=== PATIENT | male | born 1940 | race Caucasian/White ===

== ENCOUNTER 2017-06-30 12:20 | Outpatient (CLI) | payer MEDICARE, OTHER ==
[2017-06-30 14:50] LABS: Bilirubin Negative (Negative); Blood, Urine Negative (Negative); Glucose, Urine (Dipstick) Negative (Negative); Ketone, Urine Negative (Negative); Nitrite Negative (Negative); Protein, Urine (Dipstick) Negative (Neg-Trace)
[2017-06-30 14:57] LABS: Bacteria/HPF None Seen HPF (None Seen); Hyaline Casts/LPF 0-3 HYALINE CAST LPF (0-3 Hyaline); RBC/HPF 0-3 HPF (0-3); Squamous Epithelial None Seen HPF (0-3); WBC/HPF 0-3 HPF (0-3)
[2017-06-30 15:10] LABS: Anion Gap 8 mmol/L (10-20); BUN (Urea Nitrogen) 13 mg/dL (8.4-25.7); Calc. Creatinine Clearance 0 mL/min (70-130); Carbon Dioxide 32 mmol/L (23-31); Chloride 101 mmol/L (98-107); Estimated GFR-MDRD 78
== END 2017-06-30 12:21 | disposition home or self-care (01) ==
LOC: LABBT 12:20
PROVIDERS: ATTEND Orthopaedic Surgery
DX: Z01.818 Encounter for other preprocedural examination (principal); M17.0 Bilateral primary osteoarthritis of knee
CPT/HCPCS: 80048; 81001; 86850; 86900; 86901; 87081

== ENCOUNTER 2017-06-30 13:00 | Inpatient (IN) | payer MEDICARE, OTHER ==
[2017-06-30 12:48] VITALS: BMI 36.6
[2017-07-06] MEDS ORDERED: CEFAZOLIN/Water 2 GM/20 ML SYRINGE ONE (07:33)
[2017-07-06] MEDS ORDERED: Tranexamic Acid 1,000 MG/100 ML BAG ONE ×2 (07:33→13:08)
[2017-07-06] MEDS ORDERED: Fentanyl 100 MCG/2 ML VIAL ONE ×2 (07:51→10:12)
[2017-07-06] MEDS ORDERED: Midazolam HCl 2 mg/2 ml Vial ONE ×2 (07:51→08:12)
[2017-07-06 08:07] LABS: #Basophils 0.1 thou/uL (0.0-0.2); #Eosinphils 0.2 thou/uL (0.0-0.7); #Lymphocytes 2.4 thou/uL (1.20-3.40); #Monocytes 0.7 thou/uL (0.11-0.59); #Neutrophils 2.9 thou/uL (1.40-6.50); %Basophils 1.5 % (0.0-1.0); %Eosinophils 3.2 % (0.0-10.0); %Lymphocytes 37.8 % (21.0-51.0); %Monocytes 11.5 % (0.0-10.0); Hematocrit 46.1 % (42.0-52.0); Mean Platelet Volume 7.1 fL (7.4-10.4); Red Blood Cell (RBC) Count 4.65 mill/uL (4.70-6.10); White Blood Cell (WBC) Count 6.4 thou/uL (4.8-10.8)
[2017-07-06 08:13] LABS: Prothrombin Time 13.4 SEC (12.0-14.7)
[2017-07-06] MEDS ORDERED: Vancomycin HCl 1.5 GM in Sodium Chloride 0.9% 250 ML 300 ML IVPB ONE (08:15)
[2017-07-06] MEDS ORDERED: traMADol HCl 50 MG TAB PO PRN ×2 (08:39)
[2017-07-06] MEDS ORDERED: Ropivacaine 0.2% HCl/PF (40 MG/20 ML VIAL) ONE (08:39)
[2017-07-06] MEDS ORDERED: HYDROcodone/Acetaminophen 5/325 mg Tablet PO PRN ×2 (08:39)
[2017-07-06] MEDS ORDERED: Zolpidem Tartrate 5 MG TAB PO PRN ×2 (08:39→12:04)
[2017-07-06] MEDS ORDERED: Ropivacaine 0.5% HCl/PF (150 MG/30 ML VIAL) ONE (08:39)
[2017-07-06] MEDS ORDERED: Ropivacaine HCl/PF 250 ML in Premix Bag 1 BAG NERVE BLCK SCH (08:39)
[2017-07-06] MEDS ORDERED: Ondansetron HCl/PF 4 MG/2 ML Vial IVP PRN ×3 (08:39→12:23)
[2017-07-06] MEDS ORDERED: Promethazine HCl 25 MG/ML VIAL IM PRN ×3 (08:39→12:23)
[2017-07-06] MEDS ORDERED: Lidocaine 1% (PF) 30 ML VIAL ONE (08:40)
[2017-07-06] MEDS ORDERED: Bupivacaine/Epinephrine 0.25% 30 ML VIAL ONE (08:40)
[2017-07-06] MEDS ORDERED: methylPREDNISolone Acetate 40 mg/ml Vial ONE (08:40)
[2017-07-06] MEDS ORDERED: Fentanyl 100 MCG/2 ML VIAL IV PRN (08:44)
[2017-07-06] MEDS ORDERED: Bupivacaine PF 0.5% 30 ML VIAL ONE (10:23)
[2017-07-06] MEDS ORDERED: Ondansetron HCl/PF 4 MG/2 ML Vial ONE (10:52)
[2017-07-06] MEDS ORDERED: Propofol 200 MG/20 ML VIAL ONE (10:52)
[2017-07-06] MEDS ORDERED: Glycopyrrolate 0.2 MG/ML 5 ML SYRINGE ONE ×2 (10:52)
[2017-07-06] MEDS ORDERED: Dexamethasone 20 MG/5 ML VIAL ONE (10:52)
[2017-07-06] MEDS ORDERED: Labetalol HCl 100 MG/20 ML VIAL ONE (10:52)
[2017-07-06] MEDS ORDERED: diphenhydrAMINE 25 MG CAP PO PRN (12:04)
[2017-07-06] MEDS ORDERED: Acetaminophen 325 MG TAB PO PRN (12:04)
[2017-07-06] MEDS ORDERED: HYDROcodone/Acetaminophen 10/325 mg Tablet PO PRN (12:04)
[2017-07-06] MEDS ORDERED: Tranexamic Acid 1,000 MG in Sodium Chloride 0.9% 100 ML IVPB SCH (12:15)
--- NOTE | 2017-07-06 12:22 | OP ---
DATE OF PROCEDURE: 07/06/2017 PREOPERATIVE DIAGNOSIS: Bilateral knee osteoarthritis with the left being worse than the right. POSTOPERATIVE DIAGNOSIS: Bilateral knee osteoarthritis with the left being worse than the right. PROCEDURES PERFORMED: 1. Left total knee replacement using [employer] pinless navigation. 2. Right knee corticosteroid injection. SURGEON: Kevin Worley M.D. CIRCUIT DESIGN ENGINEER: Wilmer Bonilla PA-C. BLOOD LOSS: Minimal. COMPLICATIONS: None. ANESTHESIA: He did have general anesthetic. He also had blocks performed. IMPLANTS: The knee that was placed into the left knee was [employer] total knee system. The femur, s ize 5 cruciate retaining. Tibial baseplate size 5. We used a 5 x 13 mm CS X3 tibial bearing and an asymmetric 29 x 9 X3 patella. DISPOSITION: He did go to the recovery room in stable condition. INDICATIONS: A 77-year-old male who has been having problems of bilateral knees for a long time and at this time he has failed to get relief that he would like from nonoperative methods and at this ebenezer parikh wished to have his left knee replaced while at the same time injecting his right knee. DESCRIPTION OF PROCEDURE: After all appropriate consent forms were explained and signed, he was take n to the operating room and at this time was given general anesthetic. Once the level of anesthesia was appropriate, the right knee was cleaned with alcohol and 80 mg Depo-Medrol local was injected wit hout complication. We then turned our attention to the left leg. Tourniquet was placed on the left thigh and then the left lower extremity was prepped and draped in the standard surgical fashion. Onc e the level of anesthesia was appropriate, a well-padded tourniquet was placed on the left leg and th e leg was then prepped and draped in standard surgical fashion. The limb was exsanguinated and tourni quet taken up to 300 mmHg. Midline incision was made with a 10 blade down through the skin and subcut aneous tissue. Bovie electrocautery was used to coagulate any brisk venous bleeding. A new blade was used to make a medial parapatellar arthrotomy. Small subperiosteal release was performed medially and excess fat pad was removed. The knee was flexed up to gain access to the femur. The femur was naviga angelika and distal femoral resection was made. Epicondylar access was used to align our sizing jig and th is was pinned in place. We sized our femur to be a size 5, 4:1 cutting block was applied and pinned. Anterior and posterior chamfer cuts were then made. We navigated out our proximal tibia and made our proximal tibial resection. Spreaders were used to remove any posterior osteophytes off the back of th e femur as well as remaining meniscal tissue. A long alignment merary was then used to achieve correct r otation of our tibial baseplate and a size 5 was chosen. This was pinned in place. We trialed the ashley yethylene and a 5 x 13 mm CS X3 polyethylene gave us full extension and good stability throughout ran ge of motion. Two towel clips and a saw were used to cut our patella. Three lug nuts were drilled and 29 x 9 X3 patella was trialed which sat nicely in the trochlear groove. We then drilled our femur an d punched our tibia. All components were removed. The knee was thoroughly irrigated and dried. Cement was mixed into the cement gun on the back table. Components were then placed. The knee was held out in full extension until the cement had dried. All excess bone cement was removed. Multiple #2 Vicryl stitches as well as a Quill was used to close our extensor mechanism. 0 Quill followed by a running Monoderm was then used to close the skin. Surgicel glue was then used on the skin. Once this had drie d, soft tissue dressing was applied to the limb, tourniquet was let down, and the toes pinked up nice ly. The patient was then awakened and taken to the Recovery Room in stable condition. All counts wer e correct at the end of the case. The patient did receive preoperative IV antibiotics. The patient w as injected with Exparel for postoperative pain relief.
[2017-07-06] MEDS ORDERED: Promethazine HCl 25 MG/ML VIAL SLOW IVP PRN (12:23)
[2017-07-06] MEDS: CEFAZOLIN/Water 2 GM/20 ML SYRINGE SLOW IVP SCH ×2 (14:16→22:53)
[2017-07-06] MEDS: Ketorolac Tromethamine 30 MG/ML VIAL IVP SCH ×3 (14:16→22:54)
--- NOTE | 2017-07-06 14:52 | CON ---
DATE OF CONSULATION: 07/06/2017 REASON FOR ADMISSION: Bilateral knee pain, status post left total knee replacement and right knee co rticosteroid injection. REASON FOR CONSULT: Medical management. BRIEF HOSPITAL COURSE: This is a 77-year-old pleasant gentleman who has been having problems of bila teral knee for a long time. At this time, he has failed to get relief from nonoperative methods. Dr Tamika Brown spoke to the family and the patient had a total knee replacement of the left side because th e left side was hurting more than right. He also had a right knee corticosteroid injection at this p oint. He has been admitted for observation. Right now, the patient denies any chest pain, shortness of breath, nausea, vomiting, diarrhea or dysuria. He will be in the hospital for observation for po st-procedure observation. PAST MEDICAL HISTORY: Significant for obstructive sleep apnea and hypertension. MEDICATIONS: Include please see MAR includes propranolol and Benicar for blood pressure control, als o includes glucosamine, Ocuvite tablets, Viagra, lorazepam p.r.n. PAST SURGICAL HISTORY: Significant for umbilical hernia repair, bilateral knee multiple injections, colonoscopy, bilateral bone spore heel surgery. SOCIAL HISTORY: Does not smoke, occasional alcohol use, does not do any recreational drugs. ALLERGIES: CELEBREX. FAMILY HISTORY: Negative for diabetes and hypertension. REVIEW OF SYSTEMS: Significant for some discomfort in the left knee. Otherwise, no fever, no chills , no headache, no appetite, no hearing latencies, no cough. No chest pain, diarrhea, dysuria, or ashley yuria. No memory or mood changes. No neck pain. PHYSICAL EXAMINATION: VITAL SIGNS: Blood pressure is 130/80, pulse is 65, breathing comfortably on room air, afebrile. GENERAL: The patient is lying in bed, in no apparent distress. HEENT: Atraumatic, normocephalic. Pupils equally round, react to light. Extraocular movements inta ct. Mucous membranes moist. NECK: Supple. No JVD. CHEST: Breath sounds. There are no rales or rhonchi. HEART: S1, S2, no murmurs or gallops. ABDOMEN: Soft. EXTREMITIES: No cyanosis, clubbing or edema. Distal pulses present. NEUROLOGIC: Alert, awake, oriented. No cranial deficits. No sensorimotor deficits. LABORATORY DATA: WBC count is 6.4, hemoglobin is 15.7, INR is 1.0, platelet is 184, creatinine is 0. 94. ASSESSMENT AND PLAN: 1. Bilateral knee osteoarthritis, left greater than right, status post total knee replacement on the left side with right-sided corticosteroid injection. We will do pain management placement and physi yessica therapy. We will follow up primary's plan. 2. Hypertension. We will continue home medications for blood pressure and monitor blood pressure th is hospital stay. Pain management seems to be adequate on the [place] and p.r.n. medications. 3. Obstructive sleep apnea, let the patient use CPAP machine. 4. Sequential compression devices for deep venous thrombosis prophylaxis. Thanks for Dr. Worley in letting me participate in this patient's care. I will follow the patient this hospital stay and do the need for.
[2017-07-06] MEDS: Sodium Chloride 0.9% 1,000 ML IV SCH ×2 (17:41→22:59)
[2017-07-06] MEDS ORDERED: Cepastat Lozenges 1 LOZ PO PRN (19:33)
[2017-07-06] MEDS: Ferrous Gluconate 324 MG TAB PO SCH (19:55)
[2017-07-06] MEDS: Lorazepam 1 MG TAB PO SCH (19:55)
[2017-07-06] MEDS: Fish Oil 1,000 MG CAP PO SCH (19:55)
[2017-07-06] MEDS: Aspirin 325 MG TAB PO SCH (19:55)
[2017-07-06] MEDS: Senokot S 8.6-50 MG TAB PO SCH (19:55)
[2017-07-06] MEDS ORDERED: Vancomycin HCl 1.5 GM in Sodium Chloride 0.9% 250 ML 300 ML IVPB SCH (20:00)
[2017-07-06] MEDS: Cepastat Lozenges 1 LOZ PO PRN ×2 (20:14→22:54)
[2017-07-07 05:34] LABS: Hematocrit 39.3 % (42.0-52.0); Mean Platelet Volume 7.6 fL (7.4-10.4); Red Blood Cell (RBC) Count 3.99 mill/uL (4.70-6.10); White Blood Cell (WBC) Count 11.4 thou/uL (4.8-10.8)
[2017-07-07] MEDS: traMADol HCl 50 MG TAB PO PRN ×2 (05:36→20:39)
[2017-07-07] MEDS: Ketorolac Tromethamine 30 MG/ML VIAL IVP SCH ×3 (05:37→18:40)
[2017-07-07] MEDS: Cepastat Lozenges 1 LOZ PO PRN (06:20)
[2017-07-07] MEDS: Senokot S 8.6-50 MG TAB PO SCH ×2 (08:11→21:15)
[2017-07-07] MEDS: Propranolol HCl 20 MG TAB PO SCH (08:12)
[2017-07-07] MEDS: Fish Oil 1,000 MG CAP PO SCH ×2 (08:12→20:38)
[2017-07-07] MEDS: Aspirin 325 MG TAB PO SCH ×2 (08:12→20:38)
[2017-07-07] MEDS: Ferrous Gluconate 324 MG TAB PO SCH ×2 (08:12→20:38)
[2017-07-07] MEDS ORDERED: Multivitamin W/ Minerals 1 TAB PO SCH ×2 (09:00→21:00)
--- NOTE | 2017-07-07 15:55 | PDOC.PN ---
- Subjective Encounter Start Date: 07/07/17 Encounter Start Time: 15:53 Patient seen and examined. No new complaints. No overnight events - Objective MAR Reviewed: Yes Vital Signs & Weight: Vital Signs (12 hours) Temp Pulse Resp BP Pulse Ox 07/07/17 11:31 98.2 F 65 16 152/79 H 92 L 07/07/17 08:00 97.7 F 91 18 92 L 07/07/17 07:17 97.7 F 91 18 159/84 H 92 L 07/07/17 04:00 98.4 F 73 19 125/68 93 L Weight Admit Weight 255 lb Weight 255 lb I&O: 07/06/17 07/07/17 07/08/17 06:59 06:59 06:59 Intake Total 822 260 Output Total 700 Balance 122 260 Result Diagrams: 07/07/17 04:56 Phys Exam - Physical Examination Constitutional: NAD HEENT: PERRLA Neck: no JVD Respiratory: no wheezing Cardiovascular: no significant murmur Gastrointestinal: soft Musculoskeletal: pulses present lt knee in dressing Neurological: moves all 4 limbs Psychiatric: A&O x 3 Dx/Plan (1) HTN (hypertension) Code(s): I10 - ESSENTIAL (PRIMARY) HYPERTENSION Status: Acute (2) Pain management Code(s): R52 - PAIN, UNSPECIFIED Status: Acute (3) Osteoarthritis Code(s): M19.90 - UNSPECIFIED OSTEOARTHRITIS, UNSPECIFIED SITE Status: Acute (4) S/P total knee arthroplasty Code(s): Z96.659 - PRESENCE OF UNSPECIFIED ARTIFICIAL KNEE JOINT Status: Acute (5) OLYA (obstructive sleep apnea) Code(s): G47.33 - OBSTRUCTIVE SLEEP APNEA (ADULT) (PEDIATRIC) Status: Acute (6) Obesity (BMI 30-39.9) Code(s): E66.9 - OBESITY, UNSPECIFIED Status: Acute - Plan * cont current mx * case mx to help with placement * cont pt
[2017-07-07] MEDS: Sodium Chloride 0.9% 1,000 ML IV SCH ×3 (16:32→21:15)
[2017-07-07] MEDS: Lorazepam 1 MG TAB PO SCH (20:39)
[2017-07-07] MEDS ORDERED: Vit A,C & E/Lutein/Minerals Tablet PO SCH (21:00)
[2017-07-08] MEDS: Ketorolac Tromethamine 30 MG/ML VIAL IVP SCH ×2 (01:17→05:06)
[2017-07-08] MEDS: traMADol HCl 50 MG TAB PO PRN (04:38)
[2017-07-08 05:17] LABS: Hematocrit 39.6 % (42.0-52.0); Mean Platelet Volume 6.9 fL (7.4-10.4); Red Blood Cell (RBC) Count 3.95 mill/uL (4.70-6.10); White Blood Cell (WBC) Count 10.9 thou/uL (4.8-10.8)
[2017-07-08] MEDS: Aspirin 325 MG TAB PO SCH (09:17)
[2017-07-08] MEDS: Fish Oil 1,000 MG CAP PO SCH (09:18)
[2017-07-08] MEDS: Propranolol HCl 20 MG TAB PO SCH (09:18)
[2017-07-08] MEDS: Ferrous Gluconate 324 MG TAB PO SCH (09:18)
[2017-07-08] MEDS: Senokot S 8.6-50 MG TAB PO SCH (09:26)
[2017-07-08] MEDS: HYDROcodone/Acetaminophen 10/325 mg Tablet PO PRN ×2 (09:29→13:07)
[2017-07-08 12:06] VITALS: BP 139/77; TEMP 98.2
--- NOTE | 2017-07-08 12:48 | PDOC.PN ---
- Subjective Encounter Start Date: 07/08/17 Encounter Start Time: 12:47 Patient seen and examined. No new complaints. No overnight events - Objective MAR Reviewed: Yes Vital Signs & Weight: Vital Signs (12 hours) Temp Pulse Resp BP Pulse Ox 07/08/17 11:19 98.2 F 57 L 14 139/77 92 L 07/08/17 08:00 98.3 F 65 16 07/08/17 07:53 98.3 F 65 16 158/78 H 92 L 07/08/17 04:41 97.9 F 74 16 160/73 H 92 L Weight Admit Weight 255 lb Weight 255 lb I&O: 07/07/17 07/08/17 07/09/17 06:59 06:59 06:59 Intake Total 822 260 Output Total 700 Balance 122 260 Result Diagrams: 07/08/17 04:38 Phys Exam - Physical Examination Constitutional: NAD HEENT: PERRLA Neck: no JVD Respiratory: no wheezing Cardiovascular: no significant murmur Gastrointestinal: non-tender Musculoskeletal: pulses present Neurological: moves all 4 limbs Psychiatric: A&O x 3 Dx/Plan (1) HTN (hypertension) Code(s): I10 - ESSENTIAL (PRIMARY) HYPERTENSION Status: Acute (2) Pain management Code(s): R52 - PAIN, UNSPECIFIED Status: Acute (3) Osteoarthritis Code(s): M19.90 - UNSPECIFIED OSTEOARTHRITIS, UNSPECIFIED SITE Status: Acute (4) S/P total knee arthroplasty Code(s): Z96.659 - PRESENCE OF UNSPECIFIED ARTIFICIAL KNEE JOINT Status: Acute (5) OLYA (obstructive sleep apnea) Code(s): G47.33 - OBSTRUCTIVE SLEEP APNEA (ADULT) (PEDIATRIC) Status: Acute (6) Obesity (BMI 30-39.9) Code(s): E66.9 - OBESITY, UNSPECIFIED Status: Acute - Plan * cont current care * f/u with pcp in d/c
== END 2017-07-08 13:10 | disposition home or self-care (01) | DRG 470 ==
LOC: SJJU 07-06 06:42 → EDSTATUS 07-06 13:00
PROVIDERS: ADMIT Orthopaedic Surgery; ATTEND Orthopaedic Surgery
PROC: 0SRD0J9 Replacement of Left Knee Joint with Synthetic Substitute, Cemented, Open Approach (ICD-10-PCS; principal; 2017-07-06)
PROC: 3E0U33Z Introduction of Anti-inflammatory into Joints, Percutaneous Approach (ICD-10-PCS; 2017-07-06)
PROC: 3E0T3BZ Introduction of Anesthetic Agent into Peripheral Nerves and Plexi, Percutaneous Approach (ICD-10-PCS; 2017-07-06)
DX: M17.0 Bilateral primary osteoarthritis of knee (principal); I10 Essential (primary) hypertension; G47.33 Obstructive sleep apnea (adult) (pediatric); E66.9 Obesity, unspecified; Z68.36 Body mass index [BMI] 36.0-36.9, adult
CPT/HCPCS: 36415; 85025; 85027; 85610; C1713; C1776; G8978-GP-CL; G8979-GP-CJ; J1030; J1100; J1885; J2001; J2250; J2405; J2704; J2795; J3010; J3370; J7050; S0020